=== PATIENT | male | born 1935 | race Caucasian/White ===

== ENCOUNTER 2020-12-01 10:05 | Outpatient (CLI) | payer MEDICARE, OTHER | END 2020-12-01 23:59 | disposition home or self-care (01) | LOC: WOU 10:05 | PROVIDERS: ATTEND Podiatrist Foot & Ankle Surgery | DX: I87.313 Chronic venous hypertension (idiopathic) with ulcer of bilateral lower extremity (principal); L97.822 Non-pressure chronic ulcer of other part of left lower leg with fat layer exposed; L97.812 Non-pressure chronic ulcer of other part of right lower leg with fat layer exposed; L97.828 Non-pressure chronic ulcer of other part of left lower leg with other specified severity; I87.2 Venous insufficiency (chronic) (peripheral); L03.116 Cellulitis of left lower limb; L03.115 Cellulitis of right lower limb; G20 Parkinson's disease; Z79.01 Long term (current) use of anticoagulants | CPT/HCPCS: 11042; 11045; 97597; A6452 ×2 ==

== ENCOUNTER 2020-12-15 10:40 | Outpatient (CLI) | payer MEDICARE, OTHER | END 2020-12-15 23:59 | disposition home or self-care (01) | LOC: WOU 10:40 | PROVIDERS: ATTEND Podiatrist Foot & Ankle Surgery | DX: I87.312 Chronic venous hypertension (idiopathic) with ulcer of left lower extremity (principal); L97.322 Non-pressure chronic ulcer of left ankle with fat layer exposed; L97.328 Non-pressure chronic ulcer of left ankle with other specified severity; L97.828 Non-pressure chronic ulcer of other part of left lower leg with other specified severity; I87.2 Venous insufficiency (chronic) (peripheral); G20 Parkinson's disease; Z79.01 Long term (current) use of anticoagulants | CPT/HCPCS: 11042; 29581; A6207 ==

== ENCOUNTER 2020-12-19 10:00 | Outpatient (CLI) | payer MEDICARE, OTHER ==
[2020-12-19] MEDS ORDERED: LIDOCAINE SOLN 4% 50 ML BOTTLE ONE (10:57)
== END 2020-12-19 23:59 | disposition home or self-care (01) ==
LOC: WOU 10:00
PROVIDERS: ATTEND Podiatrist Foot & Ankle Surgery
DX: I87.312 Chronic venous hypertension (idiopathic) with ulcer of left lower extremity (principal); L97.322 Non-pressure chronic ulcer of left ankle with fat layer exposed; I87.2 Venous insufficiency (chronic) (peripheral); G20 Parkinson's disease; Z79.01 Long term (current) use of anticoagulants
CPT/HCPCS: 11042; 29581; A6207

== ENCOUNTER 2020-12-26 10:35 | Outpatient (CLI) | payer MEDICARE, OTHER | END 2020-12-26 23:59 | disposition home or self-care (01) | LOC: WOU 10:35 | PROVIDERS: ATTEND Podiatrist Foot & Ankle Surgery | DX: I87.2 Venous insufficiency (chronic) (peripheral) (principal); G20 Parkinson's disease; Z79.01 Long term (current) use of anticoagulants | CPT/HCPCS: 29581; A6207; 29580 ==

== ENCOUNTER 2021-01-09 10:19 | Outpatient (CLI) | payer MEDICARE, OTHER ==
[2021-01-09] MEDS ORDERED: UREA 10% -AHA 4% CREAM 57 GM TUBE ONE (10:38)
== END 2021-01-09 23:59 | disposition home or self-care (01) ==
LOC: WOU 10:19
PROVIDERS: ATTEND Podiatrist Foot & Ankle Surgery
DX: I87.2 Venous insufficiency (chronic) (peripheral) (principal); G20 Parkinson's disease; Z79.01 Long term (current) use of anticoagulants
CPT/HCPCS: 29581; A6207; 29580

== ENCOUNTER 2021-02-02 10:50 | Outpatient (CLI) | payer MEDICARE, OTHER | END 2021-02-02 23:59 | disposition home or self-care (01) | LOC: WOU 10:50 | PROVIDERS: ATTEND Podiatrist Foot & Ankle Surgery | DX: I87.312 Chronic venous hypertension (idiopathic) with ulcer of left lower extremity (principal); L97.828 Non-pressure chronic ulcer of other part of left lower leg with other specified severity; G20 Parkinson's disease; Z79.01 Long term (current) use of anticoagulants | CPT/HCPCS: 29581; A6207; 29580 ==

== ENCOUNTER 2021-03-02 10:30 | Outpatient (CLI) | payer MEDICARE, OTHER | END 2021-03-02 23:59 | disposition home or self-care (01) | LOC: WOU 10:30 | PROVIDERS: ATTEND Podiatrist Foot & Ankle Surgery | DX: I87.313 Chronic venous hypertension (idiopathic) with ulcer of bilateral lower extremity (principal); L97.822 Non-pressure chronic ulcer of other part of left lower leg with fat layer exposed; L97.812 Non-pressure chronic ulcer of other part of right lower leg with fat layer exposed; I87.2 Venous insufficiency (chronic) (peripheral); G20 Parkinson's disease; Z79.01 Long term (current) use of anticoagulants | CPT/HCPCS: 29581; A6207; 29580 ==

== ENCOUNTER 2021-03-06 10:38 | Outpatient (CLI) | payer MEDICARE, OTHER | END 2021-03-06 23:59 | disposition home or self-care (01) | LOC: WOU 10:38 | PROVIDERS: ATTEND Podiatrist Foot & Ankle Surgery | DX: I87.311 Chronic venous hypertension (idiopathic) with ulcer of right lower extremity (principal); L97.812 Non-pressure chronic ulcer of other part of right lower leg with fat layer exposed; G20 Parkinson's disease; I87.2 Venous insufficiency (chronic) (peripheral); Z79.01 Long term (current) use of anticoagulants | CPT/HCPCS: 11042; 11045; 29581; A6207 ==

== ENCOUNTER 2021-03-16 10:05 | Outpatient (CLI) | payer MEDICARE, OTHER ==
[2021-03-16] MEDS ORDERED: CLOTRIMAZOLE 1% 15 GM TUBE TP ONE (11:13)
== END 2021-03-16 23:59 | disposition home or self-care (01) ==
LOC: WOU 10:05
PROVIDERS: ATTEND Podiatrist Foot & Ankle Surgery
DX: I87.2 Venous insufficiency (chronic) (peripheral) (principal); G20 Parkinson's disease; Z79.01 Long term (current) use of anticoagulants
CPT/HCPCS: 29581; A6207; 29580

== ENCOUNTER → 2021-07-20 | Outpatient (CLI) | payer MEDICARE, OTHER | END | disposition home or self-care (01) | LOC: WOU 11:10 | PROVIDERS: ATTEND Podiatrist Foot & Ankle Surgery | DX: I87.2 Venous insufficiency (chronic) (peripheral) (principal); L60.3 Nail dystrophy; G20 Parkinson's disease; Z79.01 Long term (current) use of anticoagulants | CPT/HCPCS: G0463 ==

== ENCOUNTER 2021-09-21 10:56 | Outpatient (CLI) | payer MEDICARE, OTHER | END 2021-09-21 23:59 | disposition home or self-care (01) | LOC: WOU 10:56 | PROVIDERS: ATTEND Podiatrist Foot & Ankle Surgery | DX: I87.2 Venous insufficiency (chronic) (peripheral) (principal); G20 Parkinson's disease; L60.3 Nail dystrophy; Z79.01 Long term (current) use of anticoagulants | CPT/HCPCS: 29581; A6207; 29580 ==